=== PATIENT | female | born 1945 | race Caucasian/White ===

== ENCOUNTER 2025-01-06 22:13 | Emergency (ER) | payer MEDICARE, OTHER, SELFPAY ==
[~2025-01-06] VITALS: Ht 162.6 cm; Wt 62.1 kg
[2025-01-06] MEDS: UNRESOLVED CLARIFICATION ENTRY XX STA (22:59)
[2025-01-06] MEDS ORDERED: ISOVUE-370 76% 100 ML VIAL As Ordered ONE (23:12)
[2025-01-06 23:29] LABS: BASO # 0.0 10^3/uL (0.0-0.2); BASO % 1.2 % (0.0-1.0); EOS # 0.1 10^3/uL (0.0-0.5); EOS % 3.9 % (0.0-3.0); LYMPH # 1.5 10^3/uL (1.5-5.0); LYMPH % 44.9 % (24.0-44.0); MONO # 0.2 10^3/uL (0.0-0.8); MONO % 5.7 % (2.0-8.0); NEUTROPHILS # 1.5 10^3/uL (1.5-8.5); NEUTROPHILS % 44.0 % (36.0-66.0); PLATELET COUNT, AUTOMATED 274 10^3/uL (150-450)
[2025-01-06] MEDS: NS (Normal Saline) 0.9% 1,000 ML IV ONE (23:48)
[2025-01-06 23:51] LABS: CK-MB VALUE MASS 3.6 NG/ML (<3.6); ETHYL ALCOHOL (ETHANOL) 0.234 % (0.000-0.010)
[2025-01-06 23:52] LABS: ALT/SGPT 16 U/L (7.0-40); AST/SGOT 29 U/L (<34); CALCIUM LEVEL 7.5 MG/DL (8.3-10.6); CARBON DIOXIDE LEVEL 20 MMOL/L (20-31); CHLORIDE LEVEL 92 MMOL/L (98-107); CREATININE FOR GFR 0.55 MG/DL (0.55-1.30); GLOMERULAR FILTRATION RATE > 90.0 (>39); POTASSIUM SERUM 3.5 MMOL/L (3.5-5.1); SODIUM LEVEL 127 MMOL/L (136-145)
[2025-01-06 23:55] LABS: CPK CREATINE PHOSPHOKINASE 296 U/L (34-145); INR 0.91; MB/CK RELATIVE INDEX 1.21 (< OR =4)
[2025-01-07 01:11] LABS: CK-MB VALUE MASS 3.3 NG/ML (<3.6)
[2025-01-07 01:15] LABS: CPK CREATINE PHOSPHOKINASE 247.0 U/L (34-145); MB/CK RELATIVE INDEX 1.33 (< OR =4)
[2025-01-07] MEDS: NS (Normal Saline) 0.9% 1,000 ML IV ONE (03:35)
[2025-01-07] MEDS: NS 500 ML IV ONE (04:12)
[2025-01-07 04:30] LABS: APPEARANCE, URINE CLEAR (CLEAR); BACTERIA, URINE AUTO NEGATIVE (NEGATIVE); BILIRUBIN, URINE AUTO NEGATIVE (NEGATIVE); BLOOD, URINE BLOOD NEGATIVE (NEGATIVE); GLUCOSE, URINE (UA) AUTO NEGATIVE (NEGATIVE); KETONE, URINE AUTO TRACE mg/dL (NEGATIVE); LEUKOCYTE ESTERASE, URINE AUTO NEGATIVE (NEGATIVE); NITRITE, URINE AUTO NEGATIVE (NEGATIVE); PROTEIN, URINE AUTO NEGATIVE (NEGATIVE); RBC, URINE AUTO 0 /HPF (0-3); SPECIFIC GRAVITY URINE AUTO 1.017 (1.002-1.035); SQUAMOUS EPITHELIAL CELL UR AU 0 /HPF (0-6); UROBILINOGEN, URINE AUTO 0.2 mg/dL (0.0-2.0); WBC, URINE AUTO 0 /HPF (0-3)
[2025-01-07 04:53] LABS: AMPHETAMINES LEVEL URINE NEGATIVE (NEGATIVE); BARBITURATES URINE NEGATIVE (NEGATIVE); BENZODIAZEPINES URINE NEGATIVE (NEGATIVE); CANNABINOIDS URINE NEGATIVE (NEGATIVE); COCAINE METABOLITE URINE NEGATIVE (NEGATIVE); METHADONE URINE NEGATIVE (NEGATIVE); OPIATES URINE NEGATIVE (NEGATIVE); PHENCYCLIDINE URINE NEGATIVE (NEGATIVE)
[2025-01-07 05:38] VITALS: BP 119/62; TEMP 98; O2SAT 94
== END 2025-01-07 05:41 | disposition home or self-care (01) ==
LOC: M ED 22:13 → EDBD 22:13 → M ED 01-07 05:41
DX: F10.129 Alcohol abuse with intoxication, unspecified (principal); S32.010A Wedge compression fracture of first lumbar vertebra, initial encounter for closed fracture; W01.198A Fall on same level from slipping, tripping and stumbling with subsequent striking against other object, initial encounter; M51.369 Other intervertebral disc degeneration, lumbar region without mention of lumbar back pain or lower extremity pain; M51.34 Other intervertebral disc degeneration, thoracic region; M47.892 Other spondylosis, cervical region; M85.88 Other specified disorders of bone density and structure, other site; M25.78 Osteophyte, vertebrae; I45.10 Unspecified right bundle-branch block; I45.81 Long QT syndrome; K57.30 Diverticulosis of large intestine without perforation or abscess without bleeding; Y92.009 Unspecified place in unspecified non-institutional (private) residence as the place of occurrence of the external cause; Y93.89 Activity, other specified; Y99.9 Unspecified external cause status
CPT/HCPCS: 70450; 71045; 71260; 72125; 72128; 72131; 74177; 80047; 80048; 80076; 80307; 81001; 82077; 82150; 82550; 82553; 83605; 83690; 84484; 85025; 85610; 85730; 86850; 86900; 86901; 93005; 93041; 94760; 96360; 96361; 99285; Q9967